=== PATIENT | female | born 1960 | race Native Hawaiian/Other Pacific Islander ===

== ENCOUNTER 2016-09-20 11:36 | Inpatient (IN) | payer MEDICAID, OTHER ==
[2016-09-20 11:36] VITALS: BMI 28.1
[2016-09-20] MEDS ORDERED: Sodium Chloride 0.9% 1,000 ML IV ONE ×2 (12:52→17:28)
[2016-09-20] MEDS ORDERED: Sodium Chloride 0.9% 1,000 ML ONE ×2 (13:07→17:49)
[2016-09-20 14:10] LABS: EOS % 0.4 % (0.0-4.0); MONO # 0.5 K/uL (0.0-0.8)
[2016-09-20 14:19] LABS: POTASSIUM 4.5 mmol/L (3.6-5.2)
--- NOTE | 2016-09-20 14:20 | C.PDOC ---
History Of Present Illness The patient, a 55 y/o female whose past medical history includes Ovarian Cancer , presents to the emergency department for evaluation of vomiting which began around 2 weeks ago. Patient was evaluated by her Oncologist, Dr. Damon, around 2 weeks ago and was prescribed Zofran and advised to report to emergency department for further evaluation. As per family member, patient also reports constipation (last BM 1 week ago) and slight abdominal pain. Patient denies fever, chills, back pain. Patient reports her most recent chemotherapy treatment was end on June 2016. Time Seen by Provider: 09/20/16 12:00 Chief Complaint (Nursing): Abdominal Pain History Per: Patient, Family History/Exam Limitations: no limitations Onset/Duration Of Symptoms: Other (around 2 weeks ) Current Symptoms Are (Timing): Still Present Location Of Pain/Discomfort: Diffuse Radiation Of Pain To:: None Quality Of Discomfort: "Pain" Associated Symptoms: Vomiting, Loss Of Appetite, Constipation. denies: Fever, Chills, Back Pain Exacerbating Factors: Food Last Bowel Movement: Other (around 1 week ago) Additional History Per: Patient Abnormal Vaginal Bleeding: No Past Medical History Reviewed: Historical Data, Nursing Documentation, Vital Signs Vital Signs: Last Vital Signs Temp 98.2 F 09/20/16 17:53 Pulse 82 09/20/16 17:53 Resp 20 09/20/16 17:53 BP 118/75 09/20/16 17:53 Pulse Ox 100 09/20/16 19:11 - Medical History PMH: Anemia, Anxiety, Depression, Diabetes, Gastritis, HTN, Sleep Apnea Denies: Chronic Kidney Disease Other PMH: +ovarian cancer - [facility] Procedures DESTRUCT PERITONEAL TISS (07/11/14) DX ULTRASOUND-ABDOMEN (05/30/14) EXCISION OF GREATER OMENTUM, PERC ENDO APPROACH (01/23/15) EXCISION OF LESSER OMENTUM, PERCUTANEOUS ENDOSCOPIC APPROACH (01/23/15) INSERTION OF TOTALLY IMPLANTABLE VASC ACCESS DEVIC (07/18/14) OTH LYSIS-PERITONEAL ADHES (07/11/14) PACKED CELL TRANSFUSION (07/11/14) PERCUTANEOUS ABDOMINAL DRAINAGE (05/30/14) RESECTION OF LEFT FALLOPIAN TUBE, PERC ENDO APPROACH (01/23/15) RESECTION OF RIGHT OVARY, PERCUTANEOUS ENDOSCOPIC APPROACH (01/23/15) ROBOTIC ASSISTED PROCEDURE OF TRUNK, PERC ENDO APPROACH (01/23/15) Family History: States: Unknown Family Hx - Social History Hx Tobacco Use: No Hx Alcohol Use: No Hx Substance Use: No - Immunization History Hx Tetanus Toxoid Vaccination: No Hx Influenza Vaccination: No Hx Pneumococcal Vaccination: No Review Of Systems Except As Marked, All Systems Reviewed And Found Negative. Constitutional: Negative for: Fever, Chills Gastrointestinal: Positive for: Vomiting, Abdominal Pain, Constipation Musculoskeletal: Negative for: Back Pain Physical Exam - Physical Exam Appears: Non-toxic, No Acute Distress Skin: Warm, Dry, Pale Head: Atraumatic, Normacephalic Eye(s): bilateral: Normal Inspection Oral Mucosa: Moist Neck: Supple Chest: Symmetrical, No Deformity, No Tenderness Cardiovascular: Rhythm Regular, No Murmur Respiratory: Normal Breath Sounds, No Rales, No Rhonchi, No Wheezing Gastrointestinal/Abdominal: Tenderness (mild, diffuse ), No Guarding, No Rebound Back: Normal Inspection, No Vertebral Tenderness, No Paraspinal Tenderness Extremity: Normal ROM, Capillary Refill (less than 2 seconds ) Neurological/Psych: Oriented x3, Normal Speech, Normal Cognition Gait: Steady ED Course And Treatment - Laboratory Results Result Diagrams: 09/20/16 14:05 09/20/16 14:05 O2 Sat by Pulse Oximetry: 100 (on RA) Pulse Ox Interpretation: Normal - Other Rad Abdomen Obstructive Series XR X-Ray: Interpreted by Me, Viewed By Me, Read By Radiologist Interpretation: Accession No. : [id number]. Patient Name / ID : ASHOK Dai / [id number]. Exam Date : 09/20/2016 14:42:19 ( Approved ). Study Comment : Sex / Age : F / 55Y. Creator : Rafael Gabriel MD. Dictator : Rafael Gabriel MD. Music Copyist : [employer] : Rafael Gabriel MD. Approver2 : Report Date : 09/20/2016 16:29:20. My Comment : . PROCEDURE: Radiographs of the chest and abdomen (obstructive series). HISTORY: constipation. COMPARISON: No prior. TECHNIQUE: AP radiograph of the chest, with upright and supine radiographs of the abdomen. FINDINGS: CHEST: Lungs: Clear. Cardiovascular: Normal size heart. No pulmonary vascular congestion. Pleura: No pleural fluid. No pneumothorax. Other findings: Venous access catheter in stable, satisfactory position. ABDOMEN AND PELVIS: Bowel: Unremarkable bowel gas pattern. No evidence of mechanical obstruction. Free air : None. Bones: Unremarkable. Other findings: None. IMPRESSION: Unremarkable radiographs of chest and abdomen. No evidence of mechanical bowel obstruction. - CT Scan/US CT A/P Other Rad Studies (CT/US): Interpreted By Me, Read By Radiologist, Radiology Report Reviewed CT/US Interpretation: Accession No. : [id number]. Patient Name / ID : ASHOK Dai / [id number]. Exam Date : 09/20/2016 17:15:40 ( Approved ). Study Comment : Sex / Age : F / 55Y. Creator : Rafael Gabriel MD. Dictator : Rafael Gabriel MD. Music Copyist : [employer] : Rafael Gabriel MD. Approver2 : Report Date : 09/20/2016 17:37:39. My Comment : . PROCEDURE: CT Abdomen and Pelvis with contrast. HISTORY: Abdominal pain and vomiting. Relevant surgical history: Hysterectomy. COMPARISON: 2014. TECHNIQUE: Contrast dose: 100 cc Visipaque 320. Radiation dose: Total exam DLP = 379.42. MGy-cm. This CT exam was performed using one or more of the following dose reduction techniques: Automated exposure control, adjustment of the mA and/or kV according to patient size, and/or use of iterative reconstruction technique. FINDINGS: LOWER THORAX: Unremarkable. LIVER: Unremarkable. No gross lesion or ductal dilatation. GALLBLADDER AND BILE DUCTS : Persistent air within the gallbladder and bile ducts including common duct and intrahepatic biliary radicles. Findings likely represent the sequela of prior biliary intervention perhaps sphincterotomy. PANCREAS: Unremarkable. No gross lesion or ductal dilatation. SPLEEN: Unremarkable. ADRENALS: Unremarkable. No mass. KIDNEYS AND URETERS: Unremarkable. No hydronephrosis. No solid mass. VASCULATURE: Unremarkable. No aortic aneurysm. BOWEL: Distention of the stomach and duodenum. The duodenum is markedly dilated to the ligament of Treitz. The point of obstruction is not seen. Although on likely superior mesenteric artery syndrome can assume this appearance. APPENDIX: Normal appendix. PERITONEUM: Larger all in ascites. Peritoneal thickening, suspected carcinomatosis not apparent on the current study. LYMPH NODES: Unremarkable. No enlarged lymph nodes. BLADDER: Unremarkable. REPRODUCTIVE: Despite the history of prior hysterectomy, the continues to be uterine tissue which appears to be unremarkable. BONES: No acute fracture. OTHER FINDINGS: None. IMPRESSION: Large volume abdominal and pelvic ascites. Marked distention of the stomach and duodenum. Pneumobilia and likely related prior biliary enteric intervention perhaps sphincterotomy. Progress Note: labs and Obstructive Series abdomen ordered and reviewed. Pt received Reglan IV and IV Fluids. Case discussed with patient's oncologist, Dr. Damon, who suggested ascites paracentesis. Case discussed with Dr. Guido Redman, who agrees with plan for admission. - PA / ASSEM[employer] TABLE / Resident Statement MD/DO has reviewed & agrees with the documentation as recorded. - Scribe Statement The provider has reviewed the documentation as recorded by the Scribe (Isela Redman) All medical record entries made by the Scribe were at my direction and personally dictated by me. I have reviewed the chart and agree that the record accurately reflects my personal performance of the history, physical exam, medical decision making, and the department course for this patient. I have also personally directed, reviewed, and agree with the discharge instructions and disposition.
[2016-09-20 14:21] LABS: ALB/GLOB RATIO 1.1 (1.0-2.1); TOTAL PROTEIN 7.9 g/dL (6.3-8.3)
[2016-09-20 14:22] LABS: CALCIUM 8.5 mg/dl (8.6-10.4)
[2016-09-20 14:24] LABS: BASO % 0.2 % (0.0-2.0); HEMATOCRIT 30.3 % (34.0-47.0); LYMPH # 1.4 K/uL (1.0-4.3); LYMPH % 20.7 % (20.0-40.0); MEAN CORPUSCULAR HEMOGLOBIN 31.3 pg (27.0-31.0); MEAN CORPUSCULAR HGB CONC 32.3 g/dL (33.0-37.0); MEAN PLATELET VOLUME 9.3 fL (7.2-11.7); MONO % 7.6 % (0.0-10.0); NRBC % 0.2 % (0.0-2.0); WHITE BLOOD COUNT 6.7 K/uL (4.8-10.8)
[2016-09-20 14:28] LABS: MEAN CELL VOLUME 97.1 fL (81.0-99.0)
[2016-09-20 14:55] LABS: RBC URINE 29 /hpf (0-3); URINE BACTERIA OCC (<OCC); URINE BILIRUBIN 1+ (NEGATIVE); URINE BLOOD 2+ (NEGATIVE); URINE COLOR Amber (YELLOW); URINE GLUCOSE (UA) NORMAL (Normal); URINE KETONE 1+ mg/dL (NEGATIVE); URINE LEUKOCYTE ESTERASE 3+ Leu/uL (Negative); URINE PROTEIN 2+ mg/dL (NEGATIVE); WBC URINE 333 /hpf (0-5)
[2016-09-20] MEDS ORDERED: Iohexol 240 (50 ml) PO STA (15:26)
[2016-09-20] MEDS ORDERED: Iohexol 240 (50 ml) ONE (15:39)
--- NOTE | 2016-09-20 16:30 | RAD ---
PROCEDURE: Radiographs of the chest and abdomen (obstructive series) HISTORY: constipation COMPARISON: No prior. TECHNIQUE: AP radiograph of the chest, with upright and supine radiographs of the abdomen. FINDINGS: CHEST: Lungs: Clear. Cardiovascular: Normal size heart. No pulmonary vascular congestion. Pleura: No pleural fluid. No pneumothorax. Other findings: Venous access catheter in stable, satisfactory position. ABDOMEN AND PELVIS: Bowel: Unremarkable bowel gas pattern. No evidence of mechanical obstruction. Free air: None. Bones: Unremarkable. Other findings: None. IMPRESSION: Unremarkable radiographs of chest and abdomen. No evidence of mechanical bowel obstruction.
[2016-09-20] MEDS ORDERED: Iodixanol 320 MG/ML 100 ML BOTTLE IV ONE (17:06)
--- NOTE | 2016-09-20 17:39 | CT ---
PROCEDURE: CT Abdomen and Pelvis with contrast HISTORY: Abdominal pain and vomiting. Relevant surgical history: Hysterectomy. COMPARISON: 06/27/2014. TECHNIQUE: Contrast dose: 100 cc Visipaque 320. Radiation dose: Total exam DLP = 379.42. MGy-cm. This CT exam was performed using one or more of the following dose reduction techniques: Automated exposure control, adjustment of the mA and/or kV according to patient size, and/or use of iterative reconstruction technique. FINDINGS: LOWER THORAX: Unremarkable. LIVER: Unremarkable. No gross lesion or ductal dilatation. GALLBLADDER AND BILE DUCTS: Persistent air within the gallbladder and bile ducts including common duct and intrahepatic biliary radicles. Findings likely represent the sequela of prior biliary intervention perhaps sphincterotomy. PANCREAS: Unremarkable. No gross lesion or ductal dilatation. SPLEEN: Unremarkable. ADRENALS: Unremarkable. No mass. KIDNEYS AND URETERS: Unremarkable. No hydronephrosis. No solid mass. VASCULATURE: Unremarkable. No aortic aneurysm. BOWEL: Distention of the stomach and duodenum. The duodenum is markedly dilated to the ligament of Treitz. The point of obstruction is not seen. Although on likely superior mesenteric artery syndrome can assume this appearance. APPENDIX: Normal appendix. PERITONEUM: Larger all in ascites. Peritoneal thickening, suspected carcinomatosis not apparent on the current study. LYMPH NODES: Unremarkable. No enlarged lymph nodes. BLADDER: Unremarkable. REPRODUCTIVE: Despite the history of prior hysterectomy, the continues to be uterine tissue which appears to be unremarkable. BONES: No acute fracture. OTHER FINDINGS: None. IMPRESSION: Large volume abdominal and pelvic ascites. Marked distention of the stomach and duodenum. Pneumobilia and likely related prior biliary enteric intervention perhaps sphincterotomy.
[2016-09-20] MEDS ORDERED: cefTRIAXone IV 1 gm in Dextros 50 ML IV ONE (17:59)
[2016-09-20] MEDS ORDERED: cefTRIAXone IV 1 gm in Dextros 50 ML IVPB ONE (20:12)
[2016-09-20] MEDS ORDERED: Acetaminophen-Codeine 300/30 mg Tab PO PRN (21:10)
--- NOTE | 2016-09-20 21:33 | CP.PCM.HP ---
Past Patient History - Infectious Disease Hx of Infectious Diseases: None - Past Medical History & Family History Past Medical History?: Yes - Past Social History Smoking Status: Never Smoked - CARDIAC Hx Hypertension: Yes - PULMONARY Hx Sleep Apnea: Yes - NEUROLOGICAL Hx Neurological Disorder: Yes Hx Dizziness: Yes - HEENT Hx HEENT Problems: No - RENAL Hx Chronic Kidney Disease: No - ENDOCRINE/METABOLIC Hx Endocrine Disorders: Yes Hx Diabetes Mellitus Type 2: Yes - HEMATOLOGICAL/ONCOLOGICAL Hx Anemia: Yes - INTEGUMENTARY Hx Dermatological Problems: Yes Hx Eczema: Yes Other/Comment: skin shedding due to chemotherapy pt. uses lotion - MUSCULOSKELETAL/RHEUMATOLOGICAL Hx Musculoskeletal Disorders: No Hx Falls: Yes Other/Comment: inflamation of left knee, pt. uses walker on left hand - GASTROINTESTINAL Hx Gastritis: Yes - GENITOURINARY/GYNECOLOGICAL Hx Genitourinary Disorders: Yes Hx Ovarian Cancer: Yes (OVARIAN CANCER 05/2014) - PSYCHIATRIC Hx Anxiety: Yes Hx Depression: Yes Hx Substance Use: No - SURGICAL HISTORY Hx Surgeries: Yes Hx Hysterectomy: Yes Hx Vascular Access Device: Yes (port a cath) Other/Comment: pelvic laparotomy - ANESTHESIA Hx Anesthesia: Yes Hx Anesthesia Reactions: Yes (n/v) Hx Malignant Hyperthermia: No Meds Allergies/Adverse Reactions: Allergies Allergy/AdvReac Type Severity Reaction Status Date / Time latex Allergy Mild RASH Verified 09/20/16 11:37 Latex, Natural Rubber Allergy Mild RASH Verified 09/20/16 11:37 Results - Vital Signs Recent Vital Signs: Last Vital Signs Temp 98.1 F 09/20/16 21:15 Pulse 90 09/20/16 21:15 Resp 20 09/20/16 21:15 BP 126/71 09/20/16 21:15 Pulse Ox 97 09/20/16 21:15 - Labs Result Diagrams: 09/20/16 14:05 09/20/16 14:05
[2016-09-20] MEDS: (Novolog) Insulin Aspart, Recombinant 100 u/ml 10 ml vial SC SCH (22:47)
[2016-09-21] MEDS: (Novolog) Insulin Aspart, Recombinant 100 u/ml 10 ml vial SC SCH ×4 (07:40→21:47)
[2016-09-21 08:34] LABS: HEMATOCRIT 31.7 % (34.0-47.0); MEAN CELL VOLUME 95.3 fL (81.0-99.0); MEAN CORPUSCULAR HGB CONC 33.6 g/dL (33.0-37.0); MEAN PLATELET VOLUME 9.3 fL (7.2-11.7); RED CELL DISTRIBUTION WIDTH 15.1 % (11.5-14.5); WHITE BLOOD COUNT 6.2 K/uL (4.8-10.8)
[2016-09-21 09:08] LABS: CHLORIDE 101 mmol/L (98-107); SODIUM 136 mmol/L (132-148)
[2016-09-21 09:09] LABS: POTASSIUM 4.3 mmol/L (3.6-5.2)
[2016-09-21 09:11] LABS: ALKALINE PHOSPHATASE 112 U/L (38-126); ALT/SGPT 55 U/L (9-52); AST/SGOT 48 U/L (14-36); BILIRUBIN,TOTAL 0.9 mg/dL (0.2-1.3); BLOOD UREA NITROGEN 11 mg/dL (7-17); CARBON DIOXIDE 21 mmol/L (22-30); GFR AFRICAN-AMERICAN > 60; GLUCOSE,RANDOM 105 mg/dL (65-105)
[2016-09-21 09:12] LABS: CALCIUM 8.6 mg/dl (8.6-10.4)
[2016-09-21] MEDS: Enoxaparin 40 mg Syringe SC SCH (09:31)
[2016-09-21] MEDS: Multivitamin With Minerals Tab PO SCH (09:31)
[2016-09-21] MEDS: GlipiZIDE 5 mg SR Tab PO SCH (09:32)
--- NOTE | 2016-09-21 09:35 | CP.PCM.PN ---
Subjective - Date & Time of Evaluation Date of Evaluation: 09/21/16 Time of Evaluation: 09:33 - Subjective Subjective: Patient seen ...looks sick. admitted with nausea and vomiting. Objective - Vital Signs/Intake and Output Vital Signs (last 24 hours): Temp Pulse Resp BP Pulse Ox 98 F 91 H 20 107/67 100 09/21/16 08:05 09/21/16 08:05 09/21/16 08:05 09/21/16 08:05 09/21/16 08:05 Intake and Output: 09/21/16 09/21/16 06:59 18:59 Intake Total 30 Balance 30 - Medications Medications: Current Medications Acetaminophen/Codeine Phosphate (Tylenol/Codeine 300 Mg/30 Mg) 1 ea PO Q4 PRN PRN Reason: Pain, moderate (4-7) Enoxaparin Sodium (Lovenox) 40 mg SC DAILY [facility] Last Admin: 09/21/16 09:31 Dose: 40 mg Gabapentin (Neurontin) 300 mg PO BID [facility] Last Admin: 09/21/16 09:32 Dose: 300 mg Glipizide (Glucotrol Xl) 5 mg PO DAILY [facility] Last Admin: 09/21/16 09:32 Dose: 5 mg Insulin Aspart (Novolog) 0 unit SC ACHS [facility] PRN Reason: Protocol Last Admin: 09/21/16 07:40 Dose: Not Given Lisinopril (Zestril) 20 mg PO DAILY [facility] Lorazepam (Ativan) 0.5 mg PO BID [facility] Last Admin: 09/21/16 09:32 Dose: 0.5 mg Multivitamins/Minerals (Therapeutic-M Tab) 1 tab PO DAILY [facility] Last Admin: 09/21/16 09:31 Dose: 1 tab Ondansetron HCl (Zofran Inj) 4 mg IVP Q6 PRN PRN Reason: nausea and vomiting Pantoprazole Sodium (Protonix Ec Tab) 40 mg PO DAILY [facility] Pantoprazole Sodium (Protonix Inj) 40 mg IVP DAILY [facility] Last Admin: 09/21/16 09:31 Dose: 40 mg Sennosides (Senokot Tab) 1 mg PO DAILY [facility] - Labs Labs: 09/21/16 08:30 09/21/16 08:30 Assessment and Plan (1) Ascites Assessment & Plan: symptomatic ascites, suggest abdominal paracentesis.and cytology Status: Acute (2) Cancer of ovary Assessment & Plan: advanced recurrent cancer. suggest palliative chemo Status: Acute
[2016-09-21] MEDS ORDERED: Pantoprazole 40 mg EC Tab PO SCH (10:00)
--- NOTE | 2016-09-21 10:52 | CP.PCM.PN ---
Subjective - Date & Time of Evaluation Date of Evaluation: 09/21/16 Time of Evaluation: 10:00 - Subjective Subjective: Dr. Ryan Redman note: Patient seen in room with daughter present. She is complaining of weakness and a lack of appetite. She came to the hospital because she was having several episodes of nausea and vomiting. The daughter reports that she barely eats anything during meals. She has not been vomiting since admission. She had to stop her chemo therapy a few months ago due to insurance issues. No reported signficant weight loss though by patient's daughter or patient. Objective - Vital Signs/Intake and Output Vital Signs (last 24 hours): Temp Pulse Resp BP Pulse Ox 98 F 91 H 20 107/67 100 09/21/16 08:05 09/21/16 08:05 09/21/16 08:05 09/21/16 08:05 09/21/16 08:05 Intake and Output: 09/21/16 09/21/16 06:59 18:59 Intake Total 30 Balance 30 - Medications Medications: Current Medications Acetaminophen/Codeine Phosphate (Tylenol/Codeine 300 Mg/30 Mg) 1 ea PO Q4 PRN PRN Reason: Pain, moderate (4-7) Enoxaparin Sodium (Lovenox) 40 mg SC DAILY [facility] Last Admin: 09/21/16 09:31 Dose: 40 mg Gabapentin (Neurontin) 300 mg PO BID [facility] Last Admin: 09/21/16 09:32 Dose: 300 mg Glipizide (Glucotrol Xl) 5 mg PO DAILY [facility] Last Admin: 09/21/16 09:32 Dose: 5 mg Insulin Aspart (Novolog) 0 unit SC ACHS [facility] PRN Reason: Protocol Last Admin: 09/21/16 07:40 Dose: Not Given Lisinopril (Zestril) 20 mg PO DAILY [facility] Lorazepam (Ativan) 0.5 mg PO BID [facility] Last Admin: 09/21/16 09:32 Dose: 0.5 mg Multivitamins/Minerals (Therapeutic-M Tab) 1 tab PO DAILY [facility] Last Admin: 09/21/16 09:31 Dose: 1 tab Ondansetron HCl (Zofran Inj) 4 mg IVP Q6 PRN PRN Reason: nausea and vomiting Pantoprazole Sodium (Protonix Ec Tab) 40 mg PO DAILY [facility] Pantoprazole Sodium (Protonix Inj) 40 mg IVP DAILY [facility] Last Admin: 09/21/16 09:31 Dose: 40 mg Sennosides (Senokot Tab) 1 mg PO DAILY [facility] - Labs Labs: 09/21/16 08:30 09/21/16 08:30 - Constitutional Appears: Chronically Ill - Head Exam Head Exam: NORMAL INSPECTION - Eye Exam Eye Exam: Normal appearance Pupil Exam: NORMAL ACCOMODATION - Respiratory Exam Respiratory Exam: Clear to Ausculation Bilateral. absent: Rales, Rhonchi, Wheezes - Cardiovascular Exam Cardiovascular Exam: REGULAR RHYTHM, RRR, +S1, +S2. absent: Gallop, Rubs - GI/Abdominal Exam GI & Abdominal Exam: Soft, Tenderness, Normal Bowel Sounds Additional comments: very midly distended, scar noted. - Neurological Exam Neurological Exam: Alert - Psychiatric Exam Psychiatric exam: Normal Affect, Normal Mood - Skin Skin Exam: Normal Color Assessment and Plan (1) Ascites Assessment & Plan: CT of the abdomen is reported with large amount of ascities present, however physical exam does not show a very distended abdomen or fluid wave. No paracenteiss for now, will most likely discharge patient in the am if stable. Status: Acute (2) Nausea and vomiting Assessment & Plan: Seems to controlled with medication. Status: Acute (3) UTI (urinary tract infection) Assessment & Plan: 1 gram of Rocephin daily, follow up on urine culture. Status: Acute (4) Cancer of ovary Assessment & Plan: Dr. Schuster consulted and consult for Pallative care nurse as well. Patient may potentially restart chemo therapy next week. Status: Chronic (5) Diabetes mellitus Assessment & Plan: PO medication and accu checks and sliding scale low protocol. Status: Acute (6) Neuropathy Assessment & Plan: Neurontin 300mg daily Status: Acute (7) Prophylactic measure Assessment & Plan: Protonix and Lovenox Status: Acute - Assessment and Plan (Free Text) Assessment: Management per Dr. Redman.
--- NOTE | 2016-09-21 11:47 | CP.PCM.CON ---
History of Present Illness - History of Present Illness History of Present Illness: Palliative consult requested by ese Redman MD Reason: Goals of care discussion Patient is a 55 yo lady admitted from Doctor Nelson'a office where she complained of nausea and vomiting bile like emesis for 2 weeks. Patient felt better after the Zofran. On this admission, CT abd/pelvis was significant for large pelvic and abdominal ascites. Patient was also diagnosed with UTI and started on IV antibiotics. PMH: anemia, ovarian cancer, diagnosed in 2014, was on chemo, chemo stopped about 2 moths ago due to lack of insurance, DM, HTN Soc. 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 active Fam: Hx: unknown Review of Systems - Constitutional Constitutional: Weight Loss, Weakness - EENT Eyes: absent: As Per HPI, Blind Spots, Blurred Vision, Change in Vision, Decreased Night Vision, Diplopia, Discharge, Dry Eye, Exophthalmos, Floaters, Irritation, Itchy Eyes, Loss of Peripheral Vision, Pain, Photophobia, Requires Corrective Lenses, Sees Flashes, Spots in Vision, Tunnel Vision, Other Visual Disturbances, Loss of Vision, Other Ears: absent: As Per HPI, Decreased Hearing, Ear Discharge, Ear Pain, Tinnitus, Abnormal Hearing, Disequilibrium, Dizziness, Other Nose/Mouth/Throat: absent: As Per HPI, Epistaxis, Nasal Congestion, Nasal Discharge, Nasal Obstruction, Nasal Trauma, Nose Pain, Post Nasal Drip, Sinus Pain, Sinus Pressure, Bleeding Gums, Change in Voice, Dental Pain, Dry Mouth, Dysphagia, Halitosis, Hoarsness, Lip Swelling, Mouth Lesions, Mouth Pain, Odynophagia, Sore Throat, Throat Swelling, Tongue Swelling, Facial Pain, Neck Pain, Neck Mass, Other - Breasts Breasts: absent: As Per HPI, Change in Shape, Mass, Pain, Nipple Discharge, Nipple Inversion, Skin Changes, Swelling, Other - Cardiovascular Cardiovascular: absent: As Per HPI, Acrocyanosis, Chest Pain, Chest Pain at Rest , Chest Pain with Activity, Claudication, Diaphoresis, Dyspnea, Dyspnea on Exertion, Edema, Irregular Heart Rhythm, Pain Radiating to Arm/Neck/Jaw, Leg Edema, Leg Ulcers, Lightheadedness, Orthopnea, Palpitations, Paroxysmal Nocturnal Dyspnea, Pedal Edema, Radiating Pain, Rapid Heart Rate, Slow Heart Rate, Syncope, Other - Respiratory Respiratory: absent: As Per HPI, Cough, Dyspnea, Hemoptysis, Dyspnea on Exertion , Wheezing, Snoring, Stridor, Pain on Inspiration, Chest Congestion, Excessive Mucous Production, Change in Mucous Color, Pain with Coughing, Other - Gastrointestinal Gastrointestinal: Constipation, Nausea, Vomiting - Genitourinary Genitourinary: absent: As Per HPI, Change in Urinary Stream, Difficulty Urinating, Dysuria, Flank Pain, Hematuria, Pyuria, Nocturia, Urinary Incontinence, Urinary Frequency, Urinary Hesitance, Urinary Urgency, Voiding Freq/Small Amts, Freq UTI, Hx Renal/Bladder Calculi, Hx /Renal Surgery, Bladder Distension, Other - Reproductive: Female Reproductive:Female: Post Menopausal - Menstruation Menstruation: Post Menopausal - Musculoskeletal Musculoskeletal: absent: As Per HPI, Abnormal Gait, Arthralgias, Atrophy, Back Pain, Deformity, Joint Swelling, Limited Range of Motion, Loss of Height, Muscle Cramps, Muscle Weakness, Myalgias, Neck Pain, Numbness, Radiating Pain into Limb, Stiffness, Tingling, Other - Integumentary Integumentary: absent: As Per HPI, Acne, Alopecia, Bleeding Lesions, Change in Hair, Change in Nails, Change in Pigmentation, Changing Lesions, Dry Skin, Erythema, Furuncle, Hirsutism, Lesions, New Lesions, Non-Healing Lesions, Photosensitivity, Pruritus, Rash, Skin Pain, Skin Ulcer, Sores, Striae, Swelling , Unusual Bruising, Wounds, Jaundice, Other - Neurological Neurological: absent: As Per HPI, Abnormal Gait, Abnormal Hearing, Abnormal Movements, Abnormal Speech, Behavioral Changes, Burning Sensations, Confusion, Convulsions, Disequilibrium, Dizziness, Numbness, Focal Weakness, Frequent Falls , Headaches, Lack of Coordination, Loss of Vision, Memory Loss, Paresthesias, Radicular Pain, Restless Legs, Sensory Deficit, Syncope, Tingling, Tremor, Vertigo, Weakness, Other Visual Disturbances, Other - Psychiatric Psychiatric: absent: As Per HPI, Abnormal Sleep Pattern, Anhedonia, Anxiety, Auditory Hallucinations, Behavioral Changes, Change in Appetite, Change in Libido, Confusion, Depression, Difficulty Concentrating, Hallucinations, Homicidal Ideation, Hopelessness, Irritability, Memory Loss, Mood Swings, Panic Attacks, Paranoia, Suicidal Ideation, Visual Hallucinations, Tactile Hallucinations, Other - Endocrine Endocrine: absent: As Per HPI, Change in Body Appearance, Change in Libido, Cold Intolorance, Deepening of Voice, Excessive Sweating, Fatigue, Flushing, Heat Intolorance, Increase in Ring/Shoe/Hat Size, Palpitations, Polydipsia, Polyphagia, Polyuria, Other - Hematologic/Lymphatic Hematologic: absent: As Per HPI, Easy Bleeding, Easy Bruising, Lymphadenopathy, Other Past Patient History - Infectious Disease Hx of Infectious Diseases: None - Past Medical History & Family History Past Medical History?: Yes - Past Social History Smoking Status: Never Smoked - CARDIAC Hx Hypertension: Yes - PULMONARY Hx Sleep Apnea: Yes - NEUROLOGICAL Hx Neurological Disorder: Yes Hx Dizziness: Yes - HEENT Hx HEENT Problems: No - RENAL Hx Chronic Kidney Disease: No - ENDOCRINE/METABOLIC Hx Endocrine Disorders: Yes Hx Diabetes Mellitus Type 2: Yes - HEMATOLOGICAL/ONCOLOGICAL Hx Anemia: Yes - INTEGUMENTARY Hx Dermatological Problems: Yes Hx Eczema: Yes Other/Comment: skin shedding due to chemotherapy pt. uses lotion - MUSCULOSKELETAL/RHEUMATOLOGICAL Hx Musculoskeletal Disorders: No Hx Falls: Yes Other/Comment: inflamation of left knee, pt. uses walker on left hand - GASTROINTESTINAL Hx Gastritis: Yes - GENITOURINARY/GYNECOLOGICAL Hx Genitourinary Disorders: Yes Hx Ovarian Cancer: Yes (OVARIAN CANCER 05/2014) - PSYCHIATRIC Hx Anxiety: Yes Hx Depression: Yes Hx Substance Use: No - SURGICAL HISTORY Hx Surgeries: Yes Hx Hysterectomy: Yes Hx Vascular Access Device: Yes (port a cath) Other/Comment: pelvic laparotomy - ANESTHESIA Hx Anesthesia: Yes Hx Anesthesia Reactions: Yes (n/v) Hx Malignant Hyperthermia: No Meds Allergies/Adverse Reactions: Allergies Allergy/AdvReac Type Severity Reaction Status Date / Time latex Allergy Mild RASH Verified 09/20/16 11:37 Latex, Natural Rubber Allergy Mild RASH Verified 09/20/16 11:37 - Medications Medications: Current Medications Acetaminophen/Codeine Phosphate (Tylenol/Codeine 300 Mg/30 Mg) 1 ea PO Q4 PRN PRN Reason: Pain, moderate (4-7) Enoxaparin Sodium (Lovenox) 40 mg SC DAILY [facility] Last Admin: 09/21/16 09:31 Dose: 40 mg Gabapentin (Neurontin) 300 mg PO BID [facility] Last Admin: 09/21/16 09:32 Dose: 300 mg Glipizide (Glucotrol Xl) 5 mg PO DAILY [facility] Last Admin: 09/21/16 09:32 Dose: 5 mg Ceftriaxone Sodium 1 gm/ (Sodium Chloride) 100 mls @ 100 mls/hr IVPB DAILY [facility] Last Admin: 09/21/16 11:34 Dose: 100 mls/hr Insulin Aspart (Novolog) 0 unit SC ACHS [facility] PRN Reason: Protocol Last Admin: 09/21/16 07:40 Dose: Not Given Lisinopril (Zestril) 20 mg PO DAILY [facility] Last Admin: 09/21/16 11:20 Dose: 20 mg Lorazepam (Ativan) 0.5 mg PO BID [facility] Last Admin: 09/21/16 09:32 Dose: 0.5 mg Multivitamins/Minerals (Therapeutic-M Tab) 1 tab PO DAILY [facility] Last Admin: 09/21/16 09:31 Dose: 1 tab Ondansetron HCl (Zofran Inj) 4 mg IVP Q6 PRN PRN Reason: nausea and vomiting Pantoprazole Sodium (Protonix Ec Tab) 40 mg PO DAILY [facility] Pantoprazole Sodium (Protonix Inj) 40 mg IVP DAILY [facility] Last Admin: 09/21/16 09:31 Dose: 40 mg Sennosides (Senokot Tab) 8.6 mg PO DAILY [facility] Last Admin: 09/21/16 11:20 Dose: 8.6 mg Physical Exam - Constitutional Appears: No Acute Distress - Head Exam Head Exam: ATRAUMATIC, NORMAL INSPECTION, NORMOCEPHALIC - Eye Exam Eye Exam: EOMI, Normal appearance, PERRL Pupil Exam: NORMAL ACCOMODATION, PERRL - ENT Exam ENT Exam: Mucous Membranes Moist, Normal Exam - Neck Exam Neck exam: Positive for: Normal Inspection - Respiratory Exam Respiratory Exam: Clear to Auscultation Bilateral, NORMAL BREATHING PATTERN - Cardiovascular Exam Cardiovascular Exam: Tachycardia - GI/Abdominal Exam GI & Abdominal Exam: Normal Bowel Sounds - Rectal Exam Rectal Exam: Deferred - Extremities Exam Extremities exam: Positive for: joint swelling, normal inspection - Back Exam Back exam: NORMAL INSPECTION - Neurological Exam Neurological exam: Alert, Oriented x3 - Psychiatric Exam Psychiatric exam: Anxious - Skin Skin Exam: Normal Color, Warm Results - Vital Signs Recent Vital Signs: Last Vital Signs Temp 98 F 09/21/16 08:05 Pulse 91 H 09/21/16 08:05 Resp 20 06/06/17 08:05 BP 107/67 09/21/16 08:05 Pulse Ox 100 09/21/16 08:05 - Labs Result Diagrams: 09/21/16 08:30 09/21/16 08:30 Labs: Laboratory Results - last 24 hr 09/20/16 09/21/16 09/21/16 22:23 07:20 08:30 WBC 6.2 RBC 3.33 L Hgb 10.6 L Hct 31.7 L MCV 95.3 MCH 32.0 H MCHC 33.6 RDW 15.1 H Plt Count 139 MPV 9.3 Sodium Potassium Chloride Carbon Dioxide Anion Gap BUN Creatinine Est GFR ( Amer) Est GFR (Non-Af Amer) POC Glucose (mg/dL) 112 H 113 H Random Glucose Calcium Total Bilirubin AST ALT Alkaline Phosphatase Total Protein Albumin Globulin Albumin/Globulin Ratio 09/21/16 08:30 WBC RBC Hgb Hct MCV MCH MCHC RDW Plt Count MPV Sodium 136 Potassium 4.3 Chloride 101 Carbon Dioxide 21 L Anion Gap 18 BUN 11 Creatinine 0.9 Est GFR ( Amer) > 60 Est GFR (Non-Af Amer) > 60 POC Glucose (mg/dL) Random Glucose 105 Calcium 8.6 Total Bilirubin 0.9 AST 48 H D ALT 55 H D Alkaline Phosphatase 112 Total Protein 8.0 Albumin 4.0 Globulin 4.0 H Albumin/Globulin Ratio 1.0 Assessment & Plan - Assessment and Plan (Free Text) Assessment: Palliative consult Code status Full Code, no advance directive on the chart, PPS 30% I reviewed medical records, all diagnostic studies, examined patient in the bed and discussed goals of care and code status in presence of her two daughters. Patient is alert, oriented X 3 , looking sick,in no acute distress. Skin is pale. hb 10.6. Abdomen is soft, non distended with active bowel sounds, BM X 1 this morning. Patient denies nausea, is NPO on IV hydration. There are slight edema to both ankles. Patient denied pain. CA 125 is 926. Patient was seen by Doctor Nelson this morning. Palliative chemo was planned after the completion of IV antibiotics. Goals of care discussed with family and patient. Patient understands Sinhala very well with poor pronunciation, so one of her daughter was translating. Patient and the daughters are aware of the diagnosis and are concerned that prognosis maybe terminal. In presence of Doctor Alessandro I reviewed patient's clinical presentation but prognostication was not given. We agreed that condition was severe. Family was concerned about patient being home alone, since her is at work for most of the day.Lashae application is pending. I informed family and patient that patient will most likely need to go to [facility] for the course of IV antibiotic and that based upon how she feels at that time, goals of care should be further discussed. I discussed Code status with patient's daughters, away from the bed, as they felt that patient would get very upset if it was discussed in her presence. Advance care planing included discussion about end of life care. I pointed out that family should discuss it with the patient on her own term and see what her wishes for end of life care were. We agreed to complete advance directive where patient will point out the surrogate decision maker. Impression * This is a very sick patient with advanced ovarian CA * Patient is being treated for nausea and UTI * Patient denies abdominal pain * Abdomen does not look like containing a lot of abdominal ascites * Family and patient are well aware of severity of condition * Family to discuss among them self about Code status Suggestion * Symptoms management * Palliative Care will complete advance directive with patient. * Patient and family agreed o [facility] when medically appropriate * Thank you very much for consulting Palliative Care
--- NOTE | 2016-09-21 16:07 | CP.PCM.PN ---
Subjective - Date & Time of Evaluation Date of Evaluation: 09/21/16 Time of Evaluation: 09:00 - Subjective Subjective: clinically same Objective - Vital Signs/Intake and Output Vital Signs (last 24 hours): Temp Pulse Resp BP Pulse Ox 98 F 91 H 20 107/67 100 09/21/16 08:05 09/21/16 08:05 09/21/16 08:05 09/21/16 08:05 09/21/16 08:05 Intake and Output: 09/21/16 09/21/16 06:59 18:59 Intake Total 30 400 Balance 30 400 - Medications Medications: Current Medications Acetaminophen/Codeine Phosphate (Tylenol/Codeine 300 Mg/30 Mg) 1 ea PO Q4 PRN PRN Reason: Pain, moderate (4-7) Enoxaparin Sodium (Lovenox) 40 mg SC DAILY [facility] Last Admin: 09/21/16 09:31 Dose: 40 mg Gabapentin (Neurontin) 300 mg PO BID [facility] Last Admin: 09/21/16 09:32 Dose: 300 mg Glipizide (Glucotrol Xl) 5 mg PO DAILY [facility] Last Admin: 09/21/16 09:32 Dose: 5 mg Ceftriaxone Sodium 1 gm/ (Sodium Chloride) 100 mls @ 100 mls/hr IVPB DAILY [facility] Last Admin: 09/21/16 11:34 Dose: 100 mls/hr Insulin Aspart (Novolog) 0 unit SC ACHS [facility] PRN Reason: Protocol Last Admin: 09/21/16 13:08 Dose: Not Given Lisinopril (Zestril) 20 mg PO DAILY [facility] Last Admin: 09/21/16 11:20 Dose: 20 mg Lorazepam (Ativan) 0.5 mg PO BID [facility] Last Admin: 09/21/16 09:32 Dose: 0.5 mg Multivitamins/Minerals (Therapeutic-M Tab) 1 tab PO DAILY [facility] Last Admin: 09/21/16 09:31 Dose: 1 tab Ondansetron HCl (Zofran Inj) 4 mg IVP Q6 PRN PRN Reason: nausea and vomiting Pantoprazole Sodium (Protonix Ec Tab) 40 mg PO DAILY [facility] Pantoprazole Sodium (Protonix Inj) 40 mg IVP DAILY [facility] Last Admin: 09/21/16 09:31 Dose: 40 mg Sennosides (Senokot Tab) 8.6 mg PO DAILY [facility] Last Admin: 09/21/16 11:20 Dose: 8.6 mg - Labs Labs: 09/21/16 08:30 09/21/16 08:30 - Constitutional Appears: Well - Head Exam Head Exam: ATRAUMATIC, NORMAL INSPECTION, NORMOCEPHALIC - Eye Exam Eye Exam: EOMI, Normal appearance, PERRL Pupil Exam: NORMAL ACCOMODATION, PERRL - ENT Exam ENT Exam: Mucous Membranes Moist, Normal Exam - Neck Exam Neck Exam: Full ROM, Normal Inspection. absent: Lymphadenopathy - Respiratory Exam Respiratory Exam: Decreased Breath Sounds - Cardiovascular Exam Cardiovascular Exam: REGULAR RHYTHM, +S1, +S2 - GI/Abdominal Exam GI & Abdominal Exam: Soft, Diminished Bowel Sounds - Rectal Exam Rectal Exam: Deferred
[2016-09-22 01:25] VITALS: RESP 20; O2SAT 99
--- NOTE | 2016-09-22 07:14 | CP.PCM.PN ---
Subjective - Date & Time of Evaluation Date of Evaluation: 09/22/16 Time of Evaluation: 09:00 - Subjective Subjective: Dr. Ryan Redman note: Patient seen in room with daughter present. There is no complaint of nausea, vomiting, fever, chills, diarrhea, chest pain, or shortness of breath. Objective - Vital Signs/Intake and Output Vital Signs (last 24 hours): Temp Pulse Resp BP Pulse Ox 98.5 F 87 20 98/61 L 99 09/22/16 00:00 09/22/16 00:00 09/22/16 00:00 09/22/16 00:00 09/22/16 00:00 Intake and Output: 09/22/16 09/22/16 06:59 18:59 Intake Total 120 Balance 120 - Medications Medications: Current Medications Acetaminophen/Codeine Phosphate (Tylenol/Codeine 300 Mg/30 Mg) 1 ea PO Q4 PRN PRN Reason: Pain, moderate (4-7) Enoxaparin Sodium (Lovenox) 40 mg SC DAILY [facility] Last Admin: 09/21/16 09:31 Dose: 40 mg Gabapentin (Neurontin) 300 mg PO BID [facility] Last Admin: 09/21/16 18:41 Dose: Not Given Glipizide (Glucotrol Xl) 5 mg PO DAILY [facility] Last Admin: 09/21/16 09:32 Dose: 5 mg Ceftriaxone Sodium 1 gm/ (Sodium Chloride) 100 mls @ 100 mls/hr IVPB DAILY [facility] Last Admin: 09/21/16 11:34 Dose: 100 mls/hr Insulin Aspart (Novolog) 0 unit SC [facility] PRN Reason: Protocol Last Admin: 09/21/16 21:47 Dose: Not Given Insulin Human Regular (Novolin R) 0 unit SC ACHS [facility] PRN Reason: Protocol Lisinopril (Zestril) 20 mg PO DAILY [facility] Last Admin: 09/21/16 11:20 Dose: 20 mg Lorazepam (Ativan) 0.5 mg PO BID [facility] Last Admin: 09/21/16 18:41 Dose: 0.5 mg Multivitamins/Minerals (Therapeutic-M Tab) 1 tab PO DAILY [facility] Last Admin: 09/21/16 09:31 Dose: 1 tab Ondansetron HCl (Zofran Inj) 4 mg IVP Q6 PRN PRN Reason: nausea and vomiting Pantoprazole Sodium (Protonix Ec Tab) 40 mg PO DAILY [facility] Pantoprazole Sodium (Protonix Inj) 40 mg IVP DAILY [facility] Last Admin: 09/21/16 09:31 Dose: 40 mg Sennosides (Senokot Tab) 8.6 mg PO DAILY [facility] Last Admin: 09/21/16 11:20 Dose: 8.6 mg - Labs Labs: 09/21/16 08:30 09/21/16 08:30 - Constitutional Appears: Non-toxic, No Acute Distress - Head Exam Head Exam: NORMAL INSPECTION - Eye Exam Eye Exam: Normal appearance - Respiratory Exam Respiratory Exam: Clear to Ausculation Bilateral. absent: Rales, Rhonchi, Wheezes - Cardiovascular Exam Cardiovascular Exam: REGULAR RHYTHM, RRR, +S1, +S2. absent: Gallop, Rubs - GI/Abdominal Exam GI & Abdominal Exam: Soft, Normal Bowel Sounds. absent: Tenderness - Extremities Exam Extremities Exam: Normal Inspection - Back Exam Back Exam: NORMAL INSPECTION - Psychiatric Exam Psychiatric exam: Normal Affect, Normal Mood - Skin Skin Exam: Normal Color, Warm Assessment and Plan (1) Ascites Assessment & Plan: Patient is discharged home with Zofran prn and also Keflex 500mg bid for 4 days for UTI. She will need to follow up with Dr. Redman and her heme/onc next week for possible chemo therapy. Status: Acute (2) Nausea and vomiting Status: Acute (3) UTI (urinary tract infection) Status: Acute (4) Cancer of ovary Status: Chronic (5) Diabetes mellitus Status: Acute (6) Neuropathy Status: Acute (7) Prophylactic measure Status: Acute
[2016-09-22 08:06] LABS: BASO % 0.5 % (0.0-2.0); EOS # 0.1 K/uL (0.0-0.7); EOS % 1.5 % (0.0-4.0); HEMATOCRIT 28.3 % (34.0-47.0); LYMPH # 1.5 K/uL (1.0-4.3); MEAN CELL VOLUME 95.4 fL (81.0-99.0); MEAN CORPUSCULAR HEMOGLOBIN 31.7 pg (27.0-31.0); MEAN CORPUSCULAR HGB CONC 33.2 g/dL (33.0-37.0); MEAN PLATELET VOLUME 9.5 fL (7.2-11.7); MONO # 0.4 K/uL (0.0-0.8); MONO % 7.7 % (0.0-10.0); RED CELL DISTRIBUTION WIDTH 14.7 % (11.5-14.5); WHITE BLOOD COUNT 4.9 K/uL (4.8-10.8)
[2016-09-22 08:17] LABS: CHLORIDE 100 mmol/L (98-107); POTASSIUM 3.9 mmol/L (3.6-5.2); SODIUM 134 mmol/L (132-148)
[2016-09-22 08:19] LABS: AST/SGOT 49 U/L (14-36); BILIRUBIN,TOTAL 0.6 mg/dL (0.2-1.3); GFR AFRICAN-AMERICAN > 60
[2016-09-22 08:20] LABS: ALKALINE PHOSPHATASE 115 U/L (38-126); ALT/SGPT 57 U/L (9-52); BLOOD UREA NITROGEN 7 mg/dL (7-17); CALCIUM 8.4 mg/dl (8.6-10.4); CARBON DIOXIDE 25 mmol/L (22-30); GLUCOSE,RANDOM 99 mg/dL (65-105); MAGNESIUM 1.9 mg/dL (1.6-2.3); PHOSPHOROUS 3.2 mg/dL (2.5-4.5); TOTAL PROTEIN 7.2 g/dL (6.3-8.3)
[2016-09-22 09:13] VITALS: BP 99/61; PULSE 78; TEMP 97.8
[2016-09-22] MEDS: Multivitamin With Minerals Tab PO SCH (09:50)
[2016-09-22] MEDS: Enoxaparin 40 mg Syringe SC SCH (09:50)
[2016-09-22] MEDS: (Novolin R) Insulin Human Regular 100 units/ml vial SC SCH ×3 (09:57→17:02)
[2016-09-22] MEDS: (Novolog) Insulin Aspart, Recombinant 100 u/ml 10 ml vial SC SCH ×3 (09:58→17:03)
[2016-09-22] MEDS: GlipiZIDE 5 mg SR Tab PO SCH (12:14)
--- NOTE | 2016-09-22 14:20 | CP.PCM.PN ---
Subjective - Date & Time of Evaluation Date of Evaluation: 09/22/16 Time of Evaluation: 08:20 - Subjective Subjective: clinically same Objective - Vital Signs/Intake and Output Vital Signs (last 24 hours): Temp Pulse Resp BP Pulse Ox 97.8 F 78 20 99/61 L 99 09/22/16 08:00 09/22/16 08:00 09/22/16 08:00 09/22/16 08:00 09/22/16 08:00 Intake and Output: 09/22/16 09/22/16 06:59 18:59 Intake Total 120 Balance 120 - Medications Medications: Current Medications Acetaminophen/Codeine Phosphate (Tylenol/Codeine 300 Mg/30 Mg) 1 ea PO Q4 PRN PRN Reason: Pain, moderate (4-7) Enoxaparin Sodium (Lovenox) 40 mg SC DAILY [facility] Last Admin: 09/22/16 09:50 Dose: 40 mg Glipizide (Glucotrol Xl) 5 mg PO DAILY [facility] Last Admin: 09/22/16 12:14 Dose: 5 mg Ceftriaxone Sodium 1 gm/ (Sodium Chloride) 100 mls @ 100 mls/hr IVPB DAILY [facility] Last Admin: 09/22/16 09:58 Dose: 100 mls/hr Insulin Aspart (Novolog) 0 unit SC ACHS [facility] PRN Reason: Protocol Last Admin: 09/22/16 12:15 Dose: Not Given Insulin Human Regular (Novolin R) 0 unit SC ACHS [facility] PRN Reason: Protocol Last Admin: 09/22/16 12:15 Dose: Not Given Lisinopril (Zestril) 20 mg PO DAILY [facility] Last Admin: 09/21/16 11:20 Dose: 20 mg Lorazepam (Ativan) 0.5 mg PO BID [facility] Last Admin: 09/22/16 09:50 Dose: 0.5 mg Multivitamins/Minerals (Therapeutic-M Tab) 1 tab PO DAILY [facility] Last Admin: 09/22/16 09:50 Dose: 1 tab Ondansetron HCl (Zofran Inj) 4 mg IVP Q6 PRN PRN Reason: nausea and vomiting Last Admin: 09/22/16 10:04 Dose: 4 mg Pantoprazole Sodium (Protonix Ec Tab) 40 mg PO DAILY [facility] Last Admin: 09/22/16 09:50 Dose: 40 mg Pantoprazole Sodium (Protonix Inj) 40 mg IVP DAILY [facility] Last Admin: 09/22/16 09:58 Dose: 40 mg Sennosides (Senokot Tab) 8.6 mg PO DAILY [facility] Last Admin: 09/22/16 09:49 Dose: 8.6 mg - Labs Labs: 09/22/16 07:49 09/22/16 07:49 - Constitutional Appears: Well - Head Exam Head Exam: ATRAUMATIC, NORMAL INSPECTION, NORMOCEPHALIC - Eye Exam Eye Exam: EOMI, Normal appearance, PERRL Pupil Exam: NORMAL ACCOMODATION, PERRL - ENT Exam ENT Exam: Mucous Membranes Moist, Normal Exam - Neck Exam Neck Exam: Full ROM, Normal Inspection. absent: Lymphadenopathy - Respiratory Exam Respiratory Exam: Decreased Breath Sounds - Cardiovascular Exam Cardiovascular Exam: REGULAR RHYTHM, +S1, +S2 - GI/Abdominal Exam GI & Abdominal Exam: Soft, Diminished Bowel Sounds - Rectal Exam Rectal Exam: Deferred
== END 2016-09-22 15:35 | disposition home or self-care (01) | DRG 463 ==
LOC: C.ER 11:36 → C.9E 17:58 → C.3T 19:46
PROVIDERS: ADMIT Internal Medicine Nephrology; ATTEND Internal Medicine Nephrology
DX: R18.8 Other ascites (principal); N39.0 Urinary tract infection, site not specified; G62.9 Polyneuropathy, unspecified; C56.9 Malignant neoplasm of unspecified ovary; I10 Essential (primary) hypertension; E11.9 Type 2 diabetes mellitus without complications; Z51.5 Encounter for palliative care; G47.30 Sleep apnea, unspecified; R11.2 Nausea with vomiting, unspecified; Z90.710 Acquired absence of both cervix and uterus